=== PATIENT | female | born 1975 | race Caucasian/White ===

== ENCOUNTER 2017-12-04 05:24 | Day surgery (SDC) | payer OTHER ==
[~2017-12-04] VITALS: Ht 167.6 cm; Wt 75.7 kg
[~2017-12-04 05:24] MED LIST: PHENTERMINE H37.5 MG PO; PROZAC40 MG PO; WOMEN'S DAILY1 EAC4 PO; no home
[2017-12-04 06:03] VITALS: BP 112/74
[2017-12-04 11:25] VITALS: BP 125/69
[2017-12-04 12:35] VITALS: BP 106/63
== END 2017-12-04 13:00 | disposition home or self-care (01) ==
LOC: SDC 05:24
DX: M65.4 Radial styloid tenosynovitis [de Quervain] (principal); S52.501P Unspecified fracture of the lower end of right radius, subsequent encounter for closed fracture with malunion; F17.290 Nicotine dependence, other tobacco product, uncomplicated
CPT/HCPCS: 73110; 76000; C1713; J0690; J1100; J1170; J2405; S0020